=== PATIENT | male | born 1960 | race Caucasian/White ===

== ENCOUNTER 2016-10-06 16:28 | Inpatient (IN) | payer OTHER ==
[~2016-10-06] VITALS: Ht 182.9 cm; Wt 90.3 kg
[~2016-10-06 16:28] MED LIST: ALLER-FEX180 MG PO; ANTIVERT 25MG T25 MG PO; ASPIRIN81 MG PO; BEVESPI INH; FISH OIL 1,0001 EACH PO; FLONASE 0.05% N16 GM; IPRAT-ALBUT 0.5-3 ML INH; KLONOPIN TAB 00.5 MG PO; LEVAQUIN750 MG PO; MONTELUKAST SOD10 MG PO; NEURONTIN 300300 MG PO; NORVASC 5 MG TAB5 MG PO; PREDNISONE 10 M10 MG PO; PROAIR HFA8.5 GM INH; SPIRIVA RESPIMAT4 GM INH; SYMBICORT 160-1 INHA INH
[2016-10-06 17:40] LABS: HEMOGLOBIN 13.5 gm/dl (14.0-17.5); RED BLOOD COUNT 4.46 M/UL (4.20-5.50); WHITE BLOOD COUNT 11.9 K/UL (4.5-11.0)
[2016-10-06 18:04] LABS: BUN/CREATININE RATIO 8 (0-10)
[2016-10-06] MEDS ORDERED: DALIRESP 500500 MCG PO (22:33)
[2016-10-07 06:15] LABS: BUN/CREATININE RATIO 12 (0-10)
[2016-10-08 05:33] LABS: HEMOGLOBIN 13.9 gm/dl (14.0-17.5); RED BLOOD COUNT 4.65 M/UL (4.20-5.50)
[2016-10-08 05:36] LABS: WHITE BLOOD COUNT 19.5 K/UL (4.5-11.0)
[2016-10-08 05:53] LABS: BUN/CREATININE RATIO 22 (0-10)
[2016-10-10 04:07] LABS: HEMOGLOBIN 13.4 gm/dl (14.0-17.5); RED BLOOD COUNT 4.48 M/UL (4.20-5.50)
[2016-10-10 04:08] LABS: WHITE BLOOD COUNT 12.9 K/UL (4.5-11.0)
[2016-10-10 04:25] LABS: BUN/CREATININE RATIO 18 (0-10)
[2016-10-10] MEDS ORDERED: LEVAQUIN500 MG PO (15:14)
[2016-10-10] MEDS ORDERED: MEDROL DOSEPAK 24 MG PO (15:15)
== END 2016-10-10 16:48 | disposition home or self-care (01) | DRG 192 ==
LOC: ER1 16:28 → M/S 20:50 → ZEROF 20:50 → M/S 21:50
PROVIDERS: Emergency Medicine; ADMIT Internal Medicine
DX: J44.1 Chronic obstructive pulmonary disease with (acute) exacerbation (principal); J60 Coalworker's pneumoconiosis; I10 Essential (primary) hypertension; Z77.22 Contact with and (suspected) exposure to environmental tobacco smoke (acute) (chronic); F41.9 Anxiety disorder, unspecified; M51.36 Other intervertebral disc degeneration, lumbar region; Z86.73 Personal history of transient ischemic attack (TIA), and cerebral infarction without residual deficits; Z87.19 Personal history of other diseases of the digestive system; Z90.49 Acquired absence of other specified parts of digestive tract; Z98.890 Other specified postprocedural states; Z82.5 Family history of asthma and other chronic lower respiratory diseases; Z82.49 Family history of ischemic heart disease and other diseases of the circulatory system; Z79.899 Other long term (current) drug therapy; Z79.82 Long term (current) use of aspirin
CPT/HCPCS: 36415; 71010; 80048; 80053; 82550; 82553; 83605; 83874; 83880; 84484; 85025; 85027; 85379; 93005; 94640; 94664; 96361; 96365; 96375; 99285; J0696; J1650; J2920; J2930; J7050

== ENCOUNTER → 2021-03-23 | Outpatient (CLI) | payer BLACK LUNG ==
[~2021-03-23] MED LIST changes: +DALIRESP 500500 MCG PO; +LEVAQUIN500 MG PO; +MEDROL DOSEPAK 24 MG PO
== END ==
LOC: KOH-I 13:18
DX: R04.2 Hemoptysis (principal); R91.8 Other nonspecific abnormal finding of lung field
CPT/HCPCS: 71250

== ENCOUNTER → 2021-03-29 | Outpatient (CLI) | payer BLACK LUNG | LOC: HEART 5 14:40 | DX: J44.9 Chronic obstructive pulmonary disease, unspecified (principal) | CPT/HCPCS: 94060; 94729 ==